=== PATIENT | female | born 1975 | race Caucasian/White ===

== ENCOUNTER 2016-07-15 17:14 | Emergency (ER) | payer MEDICAID ==
[~2016-07-15] VITALS: Wt 69.0 kg
[~2016-07-15 17:14] MED LIST: DOCU-144 PO; FER325 PO; IBUP-1542 PO; IBUP200C11 PO
[2016-07-15] MEDS ORDERED: KETOROLAC 15 MG INJ IM STA (17:58)
[2016-07-15 18:11] LABS: URINE BLOOD (Dip) POC Trace-intact (NEGATIVE)
--- NOTE | 2016-07-15 18:24 | ERD ---
ER Documentation Chief Complaint Date/Time DATE: 07/15/16 TIME: 18:12 Chief Complaint HEADACHE X 4 DAYS HPI This pleasant 40-year-old female presents to the emergency department today with 4 day history of runny nose with nasal congestion, postnasal drip, headache , clogged ears, and cough. Patient reports that she has thick mucus at night that is difficult to clear, states the headache is throbbing, behind her eyes and face. She has tried no [id number] medication for symptomatic relief. Denies nausea vomiting fever or chills. Patient reports that she had a infection requiring antibiotics in April, reports she took Augmentin or penicillin she can remember. Denies history of seasonal allergies. Patient is a non-smoker. Around no sick contacts. ROS All systems reviewed and are negative except as per history of present illness. Medications Home Meds Active Scripts Fluticasone Propionate (Flonase Allergy Relief) 9.9 Ml Zenda.susp, 1 SPRAY NASAL DAILY, #1 BOTTLE TO EACH NOSTRIL Prov:ORION,KRISTY 07/15/16 Guaifen/Phenyleph/Acetaminophn (Tylenol Sinus Severe Caplet) 1 Each Tablet, 2 EACH PO Q4 for 3 Days, TAB Prov:ORION,KRISTY 07/15/16 Ibuprofen* (Motrin*) 600 Mg Tab, 600 MG PO Q6H Y for PAIN AND OR ELEVATED TEMP, #30 TAB Prov:LICHA LYN NP 10/13/15 Docusate Sodium* (Colace*) 100 Mg Capsule, 100 MG PO BID, #60 CAP Prov:LICHA LYN CONDITIONER TENDER 10/13/15 Ferrous Sulfate* (Ferrous Sulfate*) 325 Mg Tabec, 325 MG PO BID, #60 TAB Prov:LICHA LYN NP 10/13/15 Ibuprofen* (Motrin*) 600 Mg Tab, 600 MG PO Q6, #14 TAB Prov:TIMBO SALAZAR MD 11/10/14 Reported Medications Ibuprofen* (Advil*) 200 Mg Capsule, 400 MG PO Q6H Y for PAIN, CAP 02/25/14 Allergies Allergies: Coded Allergies: No Known Allergy (Unverified , 11/10/14) PMhx/Soc Medical and Surgical Hx: pt denies Medical Hx, pt denies Surgical Hx History of Surgery: No Anesthesia Reaction: No Hx Neurological Disorder: No Hx Respiratory Disorders: No Hx Cardiac Disorders: No Hx Psychiatric Problems: No Hx Miscellaneous Medical Probl: No Hx Alcohol Use: No Hx Substance Use: No Hx Tobacco Use: No Smoking Status: Never smoker Physical Exam Vitals Vital Signs Date Time Temp Pulse Resp B/P Pulse Ox O2 Delivery O2 Flow Rate FiO2 07/15/16 17:21 98.0 87 18 123/77 99 Vitals stable, triage notes reviewed Physical Exam Const: No acute distress Head: Atraumatic Eyes: Normal Conjunctiva, PERRLA, EOMI ENT: Tympanic membranes translucent, auditory canals are clear, right nares terminates +3 with mucus noted, maxillary sinus tenderness, pressure behind eyes with leaning forward, Clarinex injected, uvula rises and falls with pronation. Neck: Full range of motion.. No nuchal rigidity, no adenopathy Resp: Chest rise and fall symmetrically, clear to auscultation bilaterally no rales wheezes or rhonchi Cardio: Regular rate and rhythm, S1-S2, no S3, S4 no murmurs Abd: Skin: Back: Ext: Neur: Awake and alert Psych: Normal Mood and Affect Results 24 hrs Laboratory Tests Test 07/15/16 18:11 Bedside Urine pH (LAB) 5.5 Bedside Urine Protein (LAB) Negative Bedside Urine Glucose (UA) Negative Bedside Urine Ketones (LAB) Negative Bedside Urine Blood Trace-intact Bedside Urine Nitrite (LAB) Negative Bedside Urine Leukocyte Esterase (L 1+ Current Medications Medications (Trade) Dose Ordered Sig/Zahira Route PRN Reason Start Time Stop Time Status Last Admin Dose Admin Ketorolac Tromethamine (Toradol) 15 mg ONCE STAT IM 07/15/16 17:58 07/15/16 18:00 DC 07/15/16 18:11 Procedures/MDM This pleasant 40-year-old female presenting to emergency department today with 4 day history of runny nose, nasal congestion, and headache. Upper respiratory infection/seasonal allergies suspected, sinusitis is not suspected at this time with four-day history. Patient reports headache, without trying over-the- counter medication for symptomatic relief. Patient will receive Toradol 15 mg intramuscularly and symptomatic treatment for her upper respiratory symptoms. Patient is candidate for outpatient management and follow-up with primary care physician. I feel the patient is stable for discharge at this time. I have discussed results, examination findings, the treatment plan with the patient and family present prior to discharge. Indications for emergent reevaluation, side effects of medication were also discussed. All questions were answered. Patient verbalizes understanding and agrees with plan of care. Departure Diagnosis: Primary Impression: Viral upper respiratory infection Condition: Good Patient Instructions: Adult Self-Care for Colds [facility] Additional Instructions: Thank you for for coming to [facility] for your care today. Please ask your nurse or provider if you have questions about your care today and do not leave until all your questions have been answered. Please use any medications given as directed and follow-up with your doctor (or the doctor you were referred to) in the next 2-3 days. If you do not have a primary care doctor you may follow up at the [facility] (listed below). You may also use motrin and tylenol as needed for fever and/or pain unless instructed otherwise by your provider or nurse. Indications for more urgent follow-up have been discussed, but you may return to the Emergency Department at ANY time for any worrisome or worsening symptoms. If you have abdominal pain, please know that no test or exam you received is perfect and you should follow up within 8 hours for continued pain. If you had any imaging studies today, such as an X-Ray or CT Scan, these studies will be reviewed later by a radiologist. You will be called if there are important findings that were not identified today, so make sure the contact information you provided at registration is correct. If you received any narcotic pain control medicine today, such as Vicodin, Morphine or Dilaudid, your coordination and judgment may be affected for a number of hours. Please do not drive or operate heavy machinery, and you may want someone to assist you at home. If you were given a prescription for narcotic medication, be aware that it is very addictive- use sparingly and only if necessary. KRISTY SEARS Jul 15, 2016 18:23
[2016-07-15] MEDS ORDERED: [UNRECOGNIZED DRUG - CODE] PO (18:26)
[2016-07-15] MEDS ORDERED: FLUT9.9S NASAL (18:29)
== END 2016-07-15 18:49 | disposition home or self-care (01) ==
LOC: FTE 17:14
DX: J06.9 Acute upper respiratory infection, unspecified (principal)
CPT/HCPCS: 81003; J1885; 96372

== ENCOUNTER 2017-04-10 23:59 | Emergency (ER) | END 2017-04-11 08:10 | disposition home or self-care (01) ==

== ENCOUNTER 2018-05-05 09:31 | Emergency (ER) | payer MEDICAID ==
[~2018-05-05] VITALS: Ht 157.5 cm; Wt 79.3 kg
[~2018-05-05 09:31] MED LIST changes: +FLUT9.9S NASAL; +ONDA4TAB14 PO; +[UNRECOGNIZED DRUG - CODE] PO
[2018-05-05 09:36] VITALS: BP 121/59; PULSE 74; RESP 18; Ht 157.5 cm; Wt 79.3 kg
--- NOTE | 2018-05-05 12:54 | ERD ---
ER Documentation Chief Complaint Chief Complaint vaginal bleeding 0300, about 6wks HPI 42-year-old female presenting with vaginal bleeding that started this morning. No clots. No pelvic pain. LNMP March 18. . Has not been seen by [facility] and no ultrasound for this yet. Denies other medical problems. NKDA. Surgical history wisdom tooth. Social history denies ROS All systems reviewed and are negative except as per history of present illness. Medications Home Meds Active Scripts Ondansetron (Ondansetron Odt) 4 Mg Tab.rapdis, 4 MG PO Q6H PRN for NAUSEA AND/OR VOMITING, #10 TAB Prov:FABY BROWN PA-C 04/11/17 Fluticasone Propionate (Flonase Allergy Relief) 9.9 Ml [place].susp, 1 SPRAY NASAL DAILY, #1 BOTTLE TO EACH NOSTRIL Prov:ORION,KRISTY 07/15/16 Guaifen/Phenyleph/Acetaminophn (Tylenol Sinus Severe Caplet) 1 Each Tablet, 2 EACH PO Q4 for 3 Days, TAB Prov:ORION,KRISTY 07/15/16 Ibuprofen* (Motrin*) 600 Mg Tab, 600 MG PO Q6H PRN for PAIN AND OR ELEVATED TEMP, #30 TAB Prov:LICHA LYN NP 10/13/15 Docusate Sodium* (Colace*) 100 Mg Capsule, 100 MG PO BID, #60 CAP Prov:LICHA LYN NP 10/13/15 Ferrous Sulfate* (Ferrous Sulfate*) 325 Mg Tabec, 325 MG PO BID, #60 TAB Prov:LICHA LYN NP 10/13/15 Ibuprofen* (Motrin*) 600 Mg Tab, 600 MG PO Q6, #14 TAB Prov:TIMBO SALAZAR MD 11/10/14 Reported Medications Ibuprofen* (Advil*) 200 Mg Capsule, 400 MG PO Q6H PRN for PAIN, CAP 02/25/14 Allergies Allergies: Coded Allergies: No Known Allergy (Unverified , 11/10/14) PMhx/Soc History of Surgery: No Anesthesia Reaction: No Hx Neurological Disorder: No Hx Respiratory Disorders: No Hx Cardiac Disorders: No Hx Psychiatric Problems: No Hx Miscellaneous Medical Probl: Yes (hypothyroidism) Hx Alcohol Use: No Hx Substance Use: No Hx Tobacco Use: No Smoking Status: Never smoker FmHx Family History: No diabetes, No coronary disease, No other Physical Exam Vitals Vital Signs Date Temp Pulse Resp B/P (MAP) Pulse Ox O2 O2 Flow FiO2 Time Delivery Rate 05/05/18 98.8 74 18 121/59 97 09:36 (79) Physical Exam GENERAL: The patient is well-appearing, well-nourished, in no acute distress HEENT: Atraumatic. Conjunctivae are pink. Pupils equal, round, and reactive to light. There is no scleral icterus. Tympanic membranes clear bilaterally. Oropharynx clear. NECK: C-spine is soft and supple. There is no meningismus. There is no cervical lymphadenopathy. CHEST: Clear to auscultation bilaterally. There are no rales, wheezes or rhonchi. HEART: Regular rate and rhythm. No murmurs, clicks, rubs or gallops. ABDOMEN:Soft, nontender and nondistended. Good bowel sounds. No rebound or guarding. No gross peritonitis. No gross organomegaly or masses. Result Diagram: 05/05/18 1016 Results 24 hrs Laboratory Tests Test 05/05/18 10:16 White Blood Count 6.4 10^3/ul Red Blood Count 3.91 10^6/ul Hemoglobin 12.5 g/dl Hematocrit 35.8 % Mean Corpuscular Volume 91.6 fl Mean Corpuscular Hemoglobin 32.0 pg Mean Corpuscular Hemoglobin Concent 34.9 g/dl Red Cell Distribution Width 12.4 % Platelet Count 218 10^3/UL Mean Platelet Volume 10.8 fl Immature Granulocytes % 0.300 % Neutrophils % 56.0 % Lymphocytes % 35.9 % Monocytes % 5.8 % Eosinophils % 1.4 % Basophils % 0.6 % Nucleated Red Blood Cells % 0.0 /100WBC Immature Granulocytes # 0.020 10^3/ul Neutrophils # 3.6 10^3/ul Lymphocytes # 2.3 10^3/ul Monocytes # 0.4 10^3/ul Eosinophils # 0.1 10^3/ul Basophils # 0.0 10^3/ul Nucleated Red Blood Cells # 0.0 10^3/ul Urine Color YELLOW Urine Clarity SLIGHTLY CLOUDY Urine pH 6.0 Urine Specific Imbler 1.008 Urine Ketones NEGATIVE mg/dL Urine Nitrite NEGATIVE mg/dL Urine Bilirubin NEGATIVE mg/dL Urine Urobilinogen NEGATIVE mg/dL Urine Leukocyte Esterase NEGATIVE Leila/ul Urine Microscopic RBC 1 /HPF Urine Microscopic WBC 0 /HPF Urine Squamous Epithelial Cells FEW /HPF Urine Bacteria FEW /HPF Urine Hemoglobin 2+ mg/dL Urine Glucose NEGATIVE mg/dL Urine Total Protein NEGATIVE mg/dl Beta HCG, Quantitative 56037.0 mIU/ml Procedures/MDM DIAGNOSTIC IMAGING REPORT Patient: CHE DMAON : 1975 Age: 42 Sex: F MR #: [id number] DOS: 05/05/18 1007 Ordering MD: HIREN DAY PA-C Location: [facility] Room/Bed: PROCEDURE: US Pelvis/OB. CLINICAL INDICATION: Vaginal spotting TECHNIQUE: Multiple sonographic images of the pelvis were obtained utilizing a transabdominal technique. The images were reviewed on a PACS workstation. COMPARISON: None. FINDINGS: There is a small cystic structure within the endometrium measuring 0.8 cm which would correspond to a calculated gestational age of 5 weeks and 3 days. No pole or yolk sac is yet visualized. There is a small hypoechoic fluid collection adjacent to the gestational sac, , measuring 12 mm, consistent with subchorionic hemorrhage. There is a 2.5 cm simple cyst in the right ovary. The right ovary measures 3.4 x 3.2 x 3.3 cm. The left ovary measures ate 2.4 x 1.7 x 1.6 cm. No significant free fluid is present within the pelvis. RPTAT: AA IMPRESSION: Possible early intrauterine at 5 weeks and 3 days. No pole or yolk sac is yet visualized. Small area of subchorionic hemorrhage. Close followup ultrasound and hCG is recommended. MDM: 42-year-old female presenting with vaginal bleeding. Patient is having no pain. I have low suspicion for ectopic at this time. Patient has elevated beta quant with no full appreciated. Patient is told to return in 2 days for repeat pelvic ultrasound. She may be undergoing miscarriage however this may be normal bleeding. She is recommended to return in 2 days for repeat ultrasound to determine if becomes more complete and visualized. Patient is discharged stricter precautions. All questions answered at discharge. Patient does not have findings consistent with urinary tract infection patient's Rh+ not requiring RhoGam at this time. Patient is hemodynamically stable Departure Diagnosis: Primary Impression: Threatened Condition: Stable Patient Instructions: Possible Miscarriage (Threatened ) Referrals: [facility] YOU HAVE RECEIVED A MEDICAL SCREENING EXAM AND THE RESULTS INDICATE THAT YOU DO NOT HAVE A CONDITION THAT REQUIRES URGENT TREATMENT IN THE EMERGENCY DEPARTMENT. FURTHER EVALUATION AND TREATMENT OF YOUR CONDITION CAN WAIT UNTIL YOU ARE SEEN IN YOUR DOCTORS OFFICE WITHIN THE NEXT 1-2 DAYS. IT IS YOUR RESPONSIBILITY TO MAKE AN APPOINTMENT FOR FOLOW-UP CARE. IF YOU HAVE A PRIMARY DOCTOR --you should call your primary doctor and schedule an appointment IF YOU DO NOT HAVE A PRIMARY DOCTOR YOU CAN CALL OUR PHYSICIAN REFERRAL HOTLINE AT IF YOU CAN NOT AFFORD TO SEE A PHYSICIAN YOU CAN CHOSE FROM THE FOLLOWING [facility] [address] [facility] [address] [facility] [facility] [address] [facility] [address] [facility] [address] [facility] [facility] [address] Additional Instructions: FOLLOW UP WITH YOUR PRIMARY CARE PHYSICIAN TOMORROW.Return to this facility if you are not improving as expected. YOLY DAY PA-C May 05, 2018 12:54
== END 2018-05-05 11:25 | disposition home or self-care (01) ==
LOC: FTE 09:31
DX: O20.0 Threatened abortion (principal); E03.9 Hypothyroidism, unspecified; Z3A.01 Less than 8 weeks gestation of pregnancy
CPT/HCPCS: 36415; 76801; 81001; 84702; 85025; 86900; 86901; Z7502